=== PATIENT | male | born 1965 | race Caucasian/White ===

== ENCOUNTER 2018-04-20 13:45 | Emergency (ER) | payer OTHER ==
[~2018-04-20] VITALS: Ht 177.8 cm; Wt 90.0 kg
[2018-04-20] MEDS ORDERED: OXYMETAZOLINE HCL NASAL SPRAY 15ML RIGHTNSTRL ONE (16:45)
[2018-04-20 19:38] VITALS: BP 153/89
== END 2018-04-20 19:43 | disposition home or self-care (01) ==
LOC: ER 13:45
DX: R04.0 Epistaxis (principal); E11.9 Type 2 diabetes mellitus without complications; I10 Essential (primary) hypertension; Z79.82 Long term (current) use of aspirin
CPT/HCPCS: 99283